=== PATIENT | male | born 1985 | race Caucasian/White ===

== ENCOUNTER 2019-04-13 11:09 | Outpatient (CLI) | payer OTHER ==
--- NOTE | 2019-04-13 11:32 | ULT ---
Renal ultrasound: 04/13/2019 COMPARISON: None HISTORY: Chronic kidney disease TECHNIQUE: Multiplanar grayscale sonographic imaging of the kidneys and urinary bladder obtained. FINDINGS: Right kidney measures 11.3 cm in craniocaudal dimension and demonstrates a cortical thickne ss of 1.2 cm. Right kidney is isoechoic when compared to the adjacent hepatic parenchyma. No right renal mass, hydronephrosis, or renal stone noted. Left kidney measures 11 cm in craniocaudal dimension and demonstrates a cortical thickness of approxi mately 1.5 cm. No hydronephrosis, mass, or renal stone noted. Urinary bladder is nonvisualized. IMPRESSION: Increased echogenicity of the kidneys suggest renal medical disease. No hydronephrosis.
== END 2019-04-13 11:10 | disposition home or self-care (01) ==
LOC: ULT 11:09
PROVIDERS: ATTEND Internal Medicine Nephrology
DX: N18.3 Chronic kidney disease, stage 3 (moderate) (principal)
CPT/HCPCS: 76770

== ENCOUNTER 2023-03-19 02:24 | Observation (INO) | payer BC, OTHER ==
[2023-03-19 05:14] LABS: Troponin I 0.304 ng/mL (< 0.028)
[2023-03-19] MEDS ORDERED: Nitroglycerin 0.4 MG TAB (25 Tab Bottle) SL PRN (07:26)
[2023-03-19] MEDS ORDERED: Ondansetron PF 4 MG/2 ML Vial IVP PRN (07:28)
[2023-03-19] MEDS ORDERED: Ondansetron ODT 4 MG TAB PO PRN (07:28)
[2023-03-19] MEDS ORDERED: Acetaminophen 325 MG TAB PO PRN (07:28)
[2023-03-19 08:40] LABS: Troponin I 0.302 ng/mL (< 0.028)
[2023-03-19] MEDS ORDERED: Minoxidil 10 MG TAB PO SCH (10:30)
[2023-03-19] MEDS ORDERED: Losartan 25 MG TAB PO SCH (10:30)
[2023-03-19 10:51] LABS: Critical Call Chem Troponin I RESULT DECREASING; Troponin I 0.219 ng/mL (< 0.028)
[2023-03-19 11:22] VITALS: BMI 26.6
[2023-03-19] MEDS ORDERED: Famotidine 20 MG TAB PO SCH ×2 (13:30→21:00)
[2023-03-19] MEDS: ALPRAZolam 0.5 MG TAB PO PRN ×2 (13:56→19:46)
[2023-03-19] MEDS: Losartan 25 MG TAB PO SCH (19:45)
[2023-03-20 04:20] LABS: #Basophils 0.1 thou/uL (0.0-0.2); #Eosinphils 0.2 thou/uL (0.0-0.7); #Monocytes 0.9 thou/uL (0.11-0.59); #Neutrophils 7.3 thou/uL (1.40-6.50); %Basophils 0.5 % (0.0-1.0); %Lymphocytes 14.6 % (21.0-51.0); %Neutrophils 73.5 % (42.0-75.0); Hemoglobin 14.9 g/dL (14.0-18.0); Mean Corpuscular HGB CONC 33.9 g/dL (32.0-36.0); Mean Corpuscular Hemoglobin 29.5 pg (27.0-31.0); Mean Corpuscular Volume 87.1 fl (78.0-98.0); Mean Platelet Volume 11.2 fL (7.4-10.4); Platelet Count 239 10x3/uL (130-400); RBC Distribution Width 14.6 % (11.5-14.5); Red Blood Cell (RBC) Count 5.05 mill/uL (4.70-6.10)
[2023-03-20 04:50] LABS: Anion Gap 16 mmol/L (10-20); BUN (Urea Nitrogen) 68 mg/dL (8.9-20.6); Calc. Creatinine Clearance 16 mL/min (70-130); Calcium 9.9 mg/dL (7.8-10.44); Carbon Dioxide 21 mmol/L (22-29); Chloride 107 mmol/L (98-107); Estimated GFR 8; Glucose 77 mg/dL (70-105); Potassium 4.5 mmol/L (3.5-5.1); Sodium 139 mmol/L (136-145)
[2023-03-20] MEDS ORDERED: Minoxidil 10 MG TAB PO SCH (09:00)
[2023-03-20] MEDS: ALPRAZolam 0.5 MG TAB PO PRN (09:05)
[2023-03-20] MEDS: Losartan 25 MG TAB PO SCH (09:06)
[2023-03-20] MEDS ORDERED: Regadenoson 0.4 MG/5 ML SYRINGE ONE (13:44)
[2023-03-20 17:13] VITALS: BP 159/60; TEMP 97.9
[2023-03-20] MEDS ORDERED: Famotidine 20 MG TAB PO SCH (21:00)
== END 2023-03-20 18:49 | disposition home or self-care (01) ==
LOC: SUATTDRO 02:24 → ERS 02:24 → 2NO 06:58
PROVIDERS: ADMIT Student in an Organized Health Care Education/Training Program; ATTEND Internal Medicine
DX: R07.89 Other chest pain (principal); I12.0 Hypertensive chronic kidney disease with stage 5 chronic kidney disease or end stage renal disease; N18.5 Chronic kidney disease, stage 5; F41.9 Anxiety disorder, unspecified; R60.0 Localized edema; R00.2 Palpitations; Z79.899 Other long term (current) drug therapy; Z98.890 Other specified postprocedural states
CPT/HCPCS: 36415; 78452; 80048; 84484; 85025; 93005; 93017; 94760; A9500; G0378; J2785